=== PATIENT | male | born 1980 | race Caucasian/White ===

== ENCOUNTER 2021-09-19 12:44 | Observation (INO) | payer SELFPAY ==
[2021-09-19 13:26] VITALS: BMI 30.4
[2021-09-19] MEDS ORDERED: Ondansetron PF 4 MG/2 ML Vial IVP PRN (13:41)
[2021-09-19] MEDS ORDERED: Acetaminophen 325 MG TAB PO PRN (13:41)
[2021-09-19] MEDS ORDERED: Bisacodyl 10 MG SUPP PR PRN (13:41)
[2021-09-19] MEDS ORDERED: Bisacodyl 5 MG TAB PO PRN (13:41)
[2021-09-19] MEDS ORDERED: Senokot S 8.6-50 MG TAB PO PRN (13:41)
[2021-09-19] MEDS ORDERED: Nitroglycerin 0.4 MG TAB (25 Tab Bottle) SL PRN (13:41)
[2021-09-19] MEDS ORDERED: Ondansetron ODT 4 MG TAB PO PRN (13:41)
[2021-09-19] MEDS ORDERED: Calcium Carbonate 500 MG ChewTAB PO PRN (13:41)
[2021-09-19] MEDS ORDERED: Insulin Regular 300 UNITS/3 ML VIAL SC PRN ×2 (14:00)
[2021-09-19] MEDS ORDERED: Dextrose 5% in Water 1,000 ML IV PRN (14:00)
[2021-09-19] MEDS ORDERED: Dextrose 50% Abboject 50 ML SYRINGE SLOW IVP PRN (14:00)
[2021-09-19 14:42] LABS: Troponin I Less than 0.010 ng/mL (< 0.028)
[2021-09-19 17:05] LABS: Hemoglobin A1c 12.4 % (4.0-6.0)
[2021-09-19 17:22] LABS: Troponin I Less than 0.010 ng/mL (< 0.028)
[2021-09-19] MEDS: Famotidine/PF 20 mg/2ml Vial SLOW IVP SCH (21:19)
[2021-09-19] MEDS: Famotidine 20 MG TAB PO SCH (21:22)
[2021-09-19] MEDS: NPH, Human Insulin Isophane 300 UNIT/3 ML VIAL SC SCH (21:23)
[2021-09-20 04:56] LABS: #Eosinphils 0.1 thou/uL (0.0-0.7); #Lymphocytes 1.5 thou/uL (1.20-3.40); #Monocytes 0.3 thou/uL (0.11-0.59); #Neutrophils 2.6 thou/uL (1.40-6.50); %Basophils 0.7 % (0.0-1.0); %Eosinophils 2.1 % (0.0-10.0); %Lymphocytes 32.7 % (21.0-51.0); %Monocytes 6.9 % (0.0-10.0); %Neutrophils 57.7 % (42.0-75.0); Hemoglobin 13.4 g/dL (14.0-18.0); Mean Corpuscular HGB CONC 35.6 g/dL (32.0-36.0); Mean Corpuscular Hemoglobin 33.6 pg (27.0-31.0); Mean Corpuscular Volume 94.5 fL (78.0-98.0); Mean Platelet Volume 8.6 fL (7.4-10.4); Platelet Count 136 thou/uL (130-400); RBC Distribution Width 11.7 % (11.5-14.5); White Blood Cell (WBC) Count 4.6 thou/uL (4.8-10.8)
[2021-09-20 05:05] LABS: Prothrombin Time 13.1 sec (12.0-14.7)
[2021-09-20 05:09] LABS: PTT 19.3 sec (22.9-36.1)
[2021-09-20 05:29] LABS: ALT (SGPT) 24 U/L (8-55); AST (SGOT) 18 U/L (5-34); Albumin 4.1 g/dL (3.5-5.0); Alkaline Phosphatase 67 U/L (40-110); Anion Gap 15 mmol/L (10-20); BUN (Urea Nitrogen) 10 mg/dL (8.9-20.6); Bilirubin, Direct 0.1 mg/dL (0.1-0.3); Bilirubin, Total 0.3 mg/dL (0.2-1.2); Calc. Creatinine Clearance 177 mL/min (70-130); Calcium 9.3 mg/dL (7.8-10.44); Carbon Dioxide 20 mmol/L (22-29); Cardiac Risk 11.1 (Less than 4.5); Chloride 103 mmol/L (98-107); Cholesterol 301 mg/dl (< 200 Desired); Glucose 222 mg/dL (70-105); HDL Cholesterol 27 mg/dL (>60 Neg Risk); Magnesium 1.9 mg/dL (1.6-2.6); Potassium 3.9 mmol/L (3.5-5.1); Protein, Total 7.2 g/dL (6.0-8.3); Sodium 134 mmol/L (136-145)
[2021-09-20 06:31] LABS: Triglycerides 1563 mg/dL (Less than 150)
[2021-09-20] MEDS ORDERED: HumaLOG 300 UNITS/3 ML VIAL SC PRN (07:33)
[2021-09-20 08:26] LABS: Amphetamine Not Detected (NotDetected); Barbiturates Screen Not Detected (NotDetected); Benzodiazepine Screen Not Detected (NotDetected); Cocaine Metabolite Screen Not Detected (NotDetected); Methadone Not Detected (NotDetected); Methamphetamine Not Detected (NotDetected); Opiate Screen Not Detected (NotDetected); Oxycodone Screen Not Detected (NotDetected); Phencyclidine (PCP) Not Detected (NotDetected); THC/Cannabinoid Screen Detected (NotDetected); Tricyclic Screen Not Detected (NotDetected)
[2021-09-20] MEDS ORDERED: Lisinopril 20 MG TAB PO SCH (09:00)
[2021-09-20] MEDS ORDERED: Fenofibrate 48 MG TAB PO SCH (09:00)
[2021-09-20] MEDS ORDERED: Folic Acid 1 MG TAB PO SCH (09:00)
[2021-09-20] MEDS ORDERED: Aspirin Chewable 81 MG TAB PO SCH (09:00)
[2021-09-20] MEDS ORDERED: Multivit, Therapeutic 1 TAB PO SCH (09:00)
[2021-09-20] MEDS ORDERED: ADENOSINE 60 MG/20 ML VIAL ONE (10:02)
[2021-09-20] MEDS: Famotidine 20 MG TAB PO SCH (12:17)
[2021-09-20] MEDS: Famotidine/PF 20 mg/2ml Vial SLOW IVP SCH (12:18)
[2021-09-20] MEDS: NPH, Human Insulin Isophane 300 UNIT/3 ML VIAL SC SCH (12:18)
[2021-09-20] MEDS ORDERED: Nicotine 7 MG PATCH TD SCH (14:00)
[2021-09-20 16:11] VITALS: BP 117/71; TEMP 98.6
[2021-09-20] MEDS ORDERED: Insulin Glargine 30 UNITS/0.3 ML VIAL SC SCH (21:00)
[2021-09-20] MEDS ORDERED: Lantus 1000 UNITS/10 ML VIAL SC SCH (21:00)
[2021-09-20] MEDS ORDERED: Atorvastatin Calcium 40 MG TAB PO SCH (21:00)
[2021-09-22] MEDS ORDERED: Thiamine 100 MG TAB PO SCH (14:30)
== END 2021-09-20 16:24 | disposition home or self-care (01) ==
LOC: 2SW 13:24
PROVIDERS: ADMIT Internal Medicine; ATTEND Internal Medicine
DX: R07.9 Chest pain, unspecified (principal); E11.65 Type 2 diabetes mellitus with hyperglycemia; E78.1 Pure hyperglyceridemia; E78.00 Pure hypercholesterolemia, unspecified; F10.10 Alcohol abuse, uncomplicated; F15.11 Other stimulant abuse, in remission; F17.210 Nicotine dependence, cigarettes, uncomplicated; Z91.14 Patient's other noncompliance with medication regimen
CPT/HCPCS: 36415; 36416; 78452; 80048; 80061; 80076; 80306; 82607; 82746; 83036; 83519; 83525; 83735; 84443; 85025; 85610; 85730; 93005; 93010; 93017; A9500; G0378; J0153; J1815